=== PATIENT | female | born 1940 | race Caucasian/White ===

== ENCOUNTER 2022-11-05 13:41 | Outpatient (CLI) | payer MEDICARE, OTHER | END 2022-11-05 13:42 | disposition home or self-care (01) | LOC: LABBT 13:41 | PROVIDERS: ATTEND Orthopaedic Surgery | DX: Z01.818 Encounter for other preprocedural examination (principal); M17.11 Unilateral primary osteoarthritis, right knee | CPT/HCPCS: 71046; 93005; 93010 ==

== ENCOUNTER 2022-11-09 06:22 | Observation (INO) | payer MEDICARE, OTHER ==
[2022-11-05 15:25] LABS: #Basophils 0.1 10x3/uL (0.0-0.2); #Eosinphils 0.3 10x3/uL (0.0-0.5); #Monocytes 0.8 10x3/uL (0.0-1.1); #Neutrophils 4.3 10x3/uL (1.5-8.4); %Eosinophils 3.4 % (0.0-6.0); %Lymphocytes 33.6 % (18.0-47.0); %Monocytes 9.2 % (0.0-10.0); %Neutrophils 52.4 % (40.0-75.0); Hemoglobin 13.8 g/dL (12.0-15.5); Mean Corpuscular Hemoglobin 32.5 pg (27.0-33.0); Mean Corpuscular Volume 101.7 fl (81.6-98.3); Mean Platelet Volume 10.2 fl (7.4-10.4); Platelet Count 311 10x3/uL (150-450); RBC Distribution Width 13.6 % (11.5-14.5); Red Blood Cell (RBC) Count 4.24 10x6/uL (3.90-5.03); White Blood Cell (WBC) Count 8.1 10x3/uL (3.5-10.5)
[2022-11-05 15:34] LABS: INR-International Normal Ratio 0.9
[2022-11-05 15:41] LABS: Anion Gap 17 mmol/L (10-20); BUN (Urea Nitrogen) 17 mg/dL (9.8-20.1); Calc. Creatinine Clearance 0 mL/min (70-130); Calcium 9.6 mg/dL (7.8-10.44); Carbon Dioxide 22 mmol/L (23-31); Chloride 106 mmol/L (98-107); Estimated GFR 48; Glucose 105 mg/dL (83-110); Potassium 4.5 mmol/L (3.5-5.1); Sodium 140 mmol/L (136-145)
[2022-11-05 16:27] LABS: Bilirubin Neg (Negative); Blood, Urine 10 (Negative); Clarity Clear (Clear); Glucose, Urine (Dipstick) Normal (Negative); Ketone, Urine Negative (Negative); Leukocyte Negative (Negative); Nitrite Negative (Negative); Protein, Urine (Dipstick) Negative (Neg-Trace); Urobilinogen Normal mg/dL (Less than 2)
[2022-11-09] MEDS ORDERED: Sodium Chloride 0.9% 100 ML ONE ×2 (07:16→09:23)
[2022-11-09] MEDS ORDERED: Tranexamic Acid 1,000 MG/10 ML VIAL ONE ×2 (07:16→12:01)
[2022-11-09] MEDS ORDERED: Tranexamic Acid 1,000 MG in Sodium Chloride 0.9% 250 ML 250 ML IVPB SCH (07:30)
[2022-11-09] MEDS ORDERED: Bupivacaine PF 0.5% 30 ML VIAL ONE ×2 (07:58→09:09)
[2022-11-09] MEDS ORDERED: Midazolam HCl 2 mg/2 ml Vial ONE (07:58)
[2022-11-09] MEDS ORDERED: fentaNYL 50 mcg/mL 1 mL Vial ONE ×2 (07:58→11:48)
[2022-11-09] MEDS ORDERED: VANCOMYCIN 1.25 GM/250 ML BAG 1.25 GM in Premix Bag 1 BAG IVPB SCH (08:00)
[2022-11-09] MEDS ORDERED: CEFAZOLIN 2 GM in Sodium Chloride 0.9% 100 ML IVPB SCH (08:00)
[2022-11-09] MEDS ORDERED: Acetaminophen 500 MG TAB ONE (08:18)
[2022-11-09] MEDS ORDERED: fentaNYL 50 mcg/mL 1 mL Vial SLOW IVP PRN (08:42)
[2022-11-09] MEDS ORDERED: traMADol HCl 50 MG TAB PO PRN ×2 (08:45)
[2022-11-09] MEDS ORDERED: Ondansetron PF 4 MG/2 ML Vial IVP PRN ×2 (08:45→09:54)
[2022-11-09] MEDS ORDERED: HYDROcodone/Acetaminophen 10/325 mg Tablet PO PRN (08:45)
[2022-11-09] MEDS ORDERED: Promethazine HCl 25 MG/ML VIAL IM PRN ×2 (08:45→09:54)
[2022-11-09] MEDS ORDERED: Ropivacaine 0.2% 550 ML 550 ML NERVE BLCK SCH (08:45)
[2022-11-09] MEDS ORDERED: Zolpidem Tartrate 5 MG TAB PO PRN ×2 (08:45→09:54)
[2022-11-09] MEDS ORDERED: CEFAZOLIN 2 GM VIAL ONE (09:23)
[2022-11-09] MEDS ORDERED: fentaNYL PF 100 MCG/2 ML SYRINGE ONE (09:26)
[2022-11-09] MEDS ORDERED: Ondansetron PF 4 MG/2 ML Vial ONE (09:35)
[2022-11-09] MEDS ORDERED: PROPOFOL 200 MG/20 ML VIAL ONE (09:35)
[2022-11-09] MEDS ORDERED: ePHEDrine Sulfate 50 MG/10 ML VIAL ONE (09:35)
[2022-11-09] MEDS ORDERED: Bupivacaine HCl 0.5%/Epinephrine 1:200,000/PF 30 ml Vial ONE (09:35)
[2022-11-09] MEDS ORDERED: Lidocaine 1% PF 5 ML VIAL ONE (09:35)
[2022-11-09] MEDS ORDERED: diphenhydrAMINE 25 MG CAP PO PRN (09:54)
[2022-11-09] MEDS ORDERED: Fentanyl 100 MCG/2 ML VIAL SLOW IVP PRN (09:54)
[2022-11-09] MEDS ORDERED: Acetaminophen 325 MG TAB PO PRN (09:54)
[2022-11-09] MEDS ORDERED: Tranexamic Acid 1,000 MG in Sodium Chloride 0.9% 100 ML IVPB SCH (10:00)
[2022-11-09] MEDS ORDERED: HYDROmorphone 0.5 MG/0.5 ML SYRINGE ONE ×2 (12:01→12:41)
[2022-11-09] MEDS ORDERED: hydrALAZINE 20 MG/ML VIAL ONE (12:53)
[2022-11-09 14:40] VITALS: BMI 27.4
[2022-11-09] MEDS: HYDROcodone/Acetaminophen 10/325 mg Tablet PO PRN (17:02)
[2022-11-09] MEDS: CEFAZOLIN 2 GM in Sodium Chloride 0.9% 100 ML IVPB SCH (17:04)
[2022-11-09] MEDS: Sodium Chloride 0.9% 1,000 ML IV SCH ×2 (17:04→20:31)
[2022-11-09] MEDS: Ketorolac Tromethamine 30 MG/ML VIAL IVP PRN (19:03)
[2022-11-09] MEDS: Aspirin 81 mg Enteric Coated Tablet PO SCH (20:31)
[2022-11-09] MEDS: Ferrous Gluconate 324 MG TAB PO SCH (20:32)
[2022-11-09] MEDS: Senokot S 8.6-50 MG TAB PO SCH (20:32)
[2022-11-09] MEDS ORDERED: Vancomycin 1 GM in Premix Bag 1 BAG IVPB SCH (21:00)
[2022-11-09] MEDS ORDERED: Atorvastatin Calcium 40 MG TAB PO SCH (21:00)
[2022-11-10] MEDS: CEFAZOLIN 2 GM in Sodium Chloride 0.9% 100 ML IVPB SCH (00:12)
[2022-11-10] MEDS: Ketorolac Tromethamine 30 MG/ML VIAL IVP PRN (03:42)
[2022-11-10] MEDS: Sodium Chloride 0.9% 1,000 ML IV SCH (05:08)
[2022-11-10 05:59] LABS: Hemoglobin 11.6 g/dL (12.0-16.0); Mean Corpuscular HGB CONC 31.3 g/dL (32.0-36.0); Mean Corpuscular Hemoglobin 33.4 pg (27.0-31.0); Mean Corpuscular Volume 106.9 fl (78.0-98.0); Mean Platelet Volume 9.9 fL (7.4-10.4); Platelet Count 235 10x3/uL (130-400); Red Blood Cell (RBC) Count 3.47 mill/uL (4.20-5.40); White Blood Cell (WBC) Count 13.4 10x3/uL (4.8-10.8)
[2022-11-10] MEDS ORDERED: Levothyroxine 150 MCG TAB PO SCH (06:00)
[2022-11-10 07:59] VITALS: TEMP 97.6
[2022-11-10] MEDS: Senokot S 8.6-50 MG TAB PO SCH (08:15)
[2022-11-10] MEDS: Ferrous Gluconate 324 MG TAB PO SCH (08:16)
[2022-11-10] MEDS: HYDROcodone/Acetaminophen 10/325 mg Tablet PO PRN ×2 (08:16→12:31)
[2022-11-10] MEDS: Aspirin 81 mg Enteric Coated Tablet PO SCH (08:16)
[2022-11-10] MEDS ORDERED: Multivitamin W/ Minerals 1 TAB PO SCH (09:00)
[2022-11-10 11:18] VITALS: BP 165/74
== END 2022-11-10 12:44 | disposition home or self-care (01) ==
LOC: SDC 06:22 → SURG B 13:35
PROVIDERS: ADMIT Orthopaedic Surgery; ATTEND Orthopaedic Surgery
PROC: 0SRC0J9 Replacement of Right Knee Joint with Synthetic Substitute, Cemented, Open Approach (ICD-10-PCS; principal; 2022-11-09)
DX: M17.11 Unilateral primary osteoarthritis, right knee (principal); I10 Essential (primary) hypertension; I47.1 Supraventricular tachycardia; E03.9 Hypothyroidism, unspecified; Z79.890 Hormone replacement therapy; Z79.899 Other long term (current) drug therapy
CPT/HCPCS: 20985; 27447; 80048; 81003; 85025; 85027; 85610; 86850; 86900; 86901; 87081; 97110 ×2; 97116 ×2; 97530 ×2; A4306; C1713; C1776; J0360; J3010; J3370 ×2; 36415; J1170; J1885; J2250; J2405; J2704; J2795; J3490; J7050; S0020

== ENCOUNTER 2023-01-25 06:33 | Emergency (ER) | payer MEDICARE, OTHER ==
[2023-01-25] MEDS ORDERED: Ketorolac Tromethamine 30 MG/ML VIAL ONE (07:07)
[2023-01-25] MEDS ORDERED: predniSONE 20 MG TAB ONE (07:49)
[2023-01-25] MEDS ORDERED: Diazepam 5 MG TAB ONE (07:49)
[2023-01-25 08:03] LABS: #Basophils 0.1 thou/uL (0.0-0.2); #Monocytes 0.9 thou/uL (0.11-0.59); #Neutrophils 8.4 thou/uL (1.40-6.50); %Basophils 0.5 % (0.0-1.0); %Eosinophils 0.4 % (0.0-10.0); %Lymphocytes 13.9 % (21.0-51.0); %Monocytes 8.4 % (0.0-10.0); %Neutrophils 76.5 % (42.0-75.0); Hemoglobin 12.8 g/dL (12.0-16.0); Mean Corpuscular Hemoglobin 33.5 pg (27.0-31.0); Mean Corpuscular Volume 101.6 fl (78.0-98.0); Mean Platelet Volume 10.1 fL (7.4-10.4); Platelet Count 256 10x3/uL (130-400); RBC Distribution Width 13.4 % (11.5-14.5); Red Blood Cell (RBC) Count 3.82 mill/uL (4.20-5.40)
[2023-01-25 08:33] LABS: ALT (SGPT) 17 U/L (8-55); AST (SGOT) 20 U/L (5-34); Alkaline Phosphatase 66 U/L (40-110); Anion Gap 13 mmol/L (10-20); BUN (Urea Nitrogen) 13 mg/dL (9.8-20.1); Bilirubin, Total 0.7 mg/dL (0.2-1.2); Calc. Creatinine Clearance 0 mL/min (70-130); Calcium 9.9 mg/dL (7.8-10.44); Carbon Dioxide 26 mmol/L (23-31); Chloride 103 mmol/L (98-107); Estimated GFR 54; Globulin 3.6 g/dL (2.4-3.5); Glucose 121 mg/dL (83-110); Potassium 4.3 mmol/L (3.5-5.1); Protein, Total 7.6 g/dL (5.8-8.1); Sodium 138 mmol/L (136-145)
[2023-01-25 09:19] LABS: Bacteria/HPF None Seen HPF (None Seen); Bilirubin Negative (Negative); Blood, Urine Negative (Negative); CAUTI Indications for Culture Pelvic or flank pain; Clarity Clear (Clear); Glucose, Urine (Dipstick) Normal (Negative); Ketone, Urine Negative (Negative); Leukocyte 25 Leu/uL (Negative); Nitrite Negative (Negative); Protein, Urine (Dipstick) Negative (Neg-Trace); RBC/HPF 0-3 HPF (0-3); Specific Gravity, Urine 1.014 (1.002-1.036); Squamous Epithelial 0-3 HPF (0-3); Urobilinogen Normal mg/dL (Less than 2); WBC/HPF 0-3 HPF (0-3)
[2023-01-25 09:25] LABS: Urine Culture Reflex No No
== END 2023-01-25 12:04 | disposition home or self-care (01) ==
LOC: ERS 06:33
DX: S22.080A Wedge compression fracture of T11-T12 vertebra, initial encounter for closed fracture (principal); S32.010A Wedge compression fracture of first lumbar vertebra, initial encounter for closed fracture; X58.XXXA Exposure to other specified factors, initial encounter
CPT/HCPCS: 36415; 71045; 72128; 72131; 80053; 81001; 85025; 96372; J1885; J7512

== ENCOUNTER 2023-05-09 09:53 | Emergency (ER) | payer MEDICARE, OTHER ==
[2023-05-09] MEDS ORDERED: HYDROcodone/Acetaminophen 5/325 mg Tablet ONE (12:26)
== END 2023-05-09 12:42 | disposition home or self-care (01) ==
LOC: ERS 09:53
DX: M25.562 Pain in left knee (principal)

== ENCOUNTER 2023-11-15 10:45 | Outpatient (CLI) | payer MEDICARE, OTHER ==
[2023-11-15 12:27] LABS: Bilirubin Neg (Negative); Blood, Urine 10 (Negative); Clarity Clear (Clear); Glucose, Urine (Dipstick) Normal (Negative); Ketone, Urine Negative (Negative); Leukocyte 25 (Negative); Nitrite Negative (Negative); Protein, Urine (Dipstick) Negative (Neg-Trace); Urobilinogen Normal mg/dL (Less than 2)
[2023-11-15 12:29] LABS: #Basophils 0.08 10x3/uL (0.0-0.2); #Eosinphils 0.18 10x3/uL (0.0-0.5); #Monocytes 0.81 10x3/uL (0.0-1.1); #Neutrophils 5.27 10x3/uL (1.5-8.4); %Basophils 0.9 % (0.0-2.0); %Eosinophils 2.1 % (0.0-6.0); %Lymphocytes 25.6 % (18.0-47.0); %Monocytes 9.5 % (0.0-10.0); %Neutrophils 61.5 % (40.0-75.0); Hemoglobin 13.8 g/dL (12.0-15.5); Mean Corpuscular HGB CONC 32.9 g/dL (32.0-36.0); Mean Corpuscular Hemoglobin 33.3 pg (27.0-33.0); Mean Corpuscular Volume 101.4 fl (81.6-98.3); Mean Platelet Volume 10.4 fl (7.4-10.4); Platelet Count 284 10x3/uL (150-450); RBC Distribution Width 14.2 % (11.5-14.5); Red Blood Cell (RBC) Count 4.14 10x6/uL (3.90-5.03); White Blood Cell (WBC) Count 8.6 10x3/uL (3.5-10.5)
[2023-11-15 12:34] LABS: Anion Gap 15 mmol/L (10-20); BUN (Urea Nitrogen) 19 mg/dL (9.8-20.1); Calc. Creatinine Clearance 0 mL/min (70-130); Calcium 10.1 mg/dL (7.8-10.44); Carbon Dioxide 26 mmol/L (23-31); Chloride 104 mmol/L (98-107); Estimated GFR 38; Glucose 108 mg/dL (83-110); Potassium 4.4 mmol/L (3.5-5.1); Sodium 141 mmol/L (136-145)
[2023-11-15 13:27] LABS: Prothrombin Time 10.5 sec (9.5-12.1)
== END 2023-11-15 10:46 | disposition home or self-care (01) ==
LOC: LABBT 10:45
PROVIDERS: ATTEND Orthopaedic Surgery
DX: Z01.818 Encounter for other preprocedural examination (principal); M17.12 Unilateral primary osteoarthritis, left knee
CPT/HCPCS: 71046; 80048; 81003; 85025; 85610; 87081; 93005; 93010

== ENCOUNTER 2023-11-22 06:29 | Inpatient (IN) | payer MEDICARE, OTHER ==
[2023-11-15 11:18] VITALS: BMI 26.6
[2023-11-22] MEDS ORDERED: Bupivacaine PF 0.5% 30 ML VIAL ONE ×2 (06:34→07:54)
[2023-11-22] MEDS ORDERED: Tranexamic Acid 1,000 MG/10 ML VIAL ONE ×2 (07:06→11:25)
[2023-11-22] MEDS ORDERED: Sodium Chloride 0.9% 100 ML ONE ×2 (07:06→08:58)
[2023-11-22] MEDS ORDERED: fentaNYL 50 mcg/mL 1 mL Vial ONE ×2 (07:54→09:19)
[2023-11-22] MEDS ORDERED: Midazolam HCl 2 mg/2 ml Vial ONE (07:54)
[2023-11-22] MEDS ORDERED: Vancomycin 1 GM/200 ML (FROZEN) BAG ONE (08:10)
[2023-11-22] MEDS ORDERED: Bupivacaine HCl 0.5%/Epinephrine 1:200,000/PF 30 ml Vial ONE (08:25)
[2023-11-22] MEDS ORDERED: CEFAZOLIN 2 GM VIAL ONE (08:58)
[2023-11-22] MEDS ORDERED: Ondansetron PF 4 MG/2 ML Vial IVP PRN ×2 (09:00→11:13)
[2023-11-22] MEDS ORDERED: Promethazine HCl 25 MG/ML VIAL IM PRN ×2 (09:00→11:13)
[2023-11-22] MEDS ORDERED: Zolpidem Tartrate 5 MG TAB PO PRN (09:00)
[2023-11-22] MEDS ORDERED: Ropivacaine 0.2% 550 ML 550 ML NERVE BLCK SCH (09:00)
[2023-11-22] MEDS ORDERED: traMADol HCl 50 MG TAB PO PRN (09:00)
[2023-11-22] MEDS ORDERED: PROPOFOL 20 ML ONE ×2 (09:04→09:19)
[2023-11-22] MEDS ORDERED: fentaNYL PF 100 MCG/2 ML SYRINGE ONE ×3 (09:04→11:36)
[2023-11-22] MEDS ORDERED: Lidocaine 1% PF 5 ML VIAL ONE (09:41)
[2023-11-22] MEDS ORDERED: Dexamethasone 20 MG/5 ML VIAL ONE (10:28)
[2023-11-22] MEDS ORDERED: Acetaminophen 325 MG TAB PO PRN (11:13)
[2023-11-22] MEDS ORDERED: diphenhydrAMINE 25 MG CAP PO PRN (11:13)
[2023-11-22] MEDS ORDERED: Tranexamic Acid 1,000 MG in Sodium Chloride 0.9% 100 ML IVPB SCH (11:15)
[2023-11-22] MEDS ORDERED: HYDROmorphone 0.5 MG/0.5 ML SYRINGE ONE (11:36)
[2023-11-22] MEDS: Sodium Chloride 0.9% 1,000 ML IV SCH (12:59)
[2023-11-22] MEDS: Gabapentin 100 MG CAP PO SCH ×2 (12:59→20:13)
[2023-11-22] MEDS: HYDROcodone/Acetaminophen 10/325 mg Tablet PO PRN (16:09)
[2023-11-22] MEDS: CEFAZOLIN 2 GM in Sodium Chloride 0.9% 100 ML IVPB SCH (16:09)
[2023-11-22] MEDS: Atorvastatin Calcium 40 MG TAB PO SCH (20:13)
[2023-11-22] MEDS: Aspirin 81 mg Enteric Coated Tablet PO SCH (20:13)
[2023-11-22] MEDS: Vancomycin (BATCH) 1.5 GM in Premix 1 BAG IVPB SCH (20:14)
[2023-11-22] MEDS: traMADol HCl 50 MG TAB PO PRN (21:49)
[2023-11-23] MEDS: Zolpidem Tartrate 5 MG TAB PO PRN (00:51)
[2023-11-23 05:03] LABS: Hematocrit 34.5 % (36.0-47.0); Hemoglobin 11.3 g/dL (12.0-16.0); Mean Corpuscular HGB CONC 32.8 g/dL (32.0-36.0); Mean Corpuscular Hemoglobin 33.8 pg (27.0-31.0); Mean Corpuscular Volume 103.3 fL (78.0-98.0); Mean Platelet Volume 10.6 fL (7.4-10.4); Platelet Count 194 10x3/uL (130-400); RBC Distribution Width 14.1 % (11.5-14.5); Red Blood Cell (RBC) Count 3.34 mill/uL (4.20-5.40)
[2023-11-23] MEDS: Levothyroxine 150 MCG TAB PO SCH (06:19)
[2023-11-23] MEDS: Ferrous Gluconate 324 MG TAB PO SCH (08:28)
[2023-11-23] MEDS: CeleCOXIB 100 MG CAP PO SCH (08:28)
[2023-11-23] MEDS: Senokot S 8.6-50 MG TAB PO SCH (08:28)
[2023-11-23] MEDS: fentaNYL 50 mcg/mL 1 mL Vial SLOW IVP PRN (08:29)
[2023-11-23] MEDS: Multivitamin W/ Minerals 1 TAB PO SCH (08:31)
[2023-11-23] MEDS: HYDROcodone/Acetaminophen 10/325 mg Tablet PO PRN (22:12)
[2023-11-24 05:20] LABS: Hematocrit 32.9 % (36.0-47.0); Hemoglobin 10.4 g/dL (12.0-16.0); Mean Corpuscular HGB CONC 31.6 g/dL (32.0-36.0); Mean Corpuscular Hemoglobin 33.7 pg (27.0-31.0); Mean Corpuscular Volume 106.5 fL (78.0-98.0); Mean Platelet Volume 10.2 fL (7.4-10.4); Platelet Count 158 10x3/uL (130-400); RBC Distribution Width 14.4 % (11.5-14.5); Red Blood Cell (RBC) Count 3.09 mill/uL (4.20-5.40)
[2023-11-24 11:46] VITALS: BP 148/67; TEMP 98.5
== END 2023-11-24 13:20 | disposition home or self-care (01) | DRG 470 ==
LOC: SDC 06:29 → SJJU 13:52 → OBSVTOIN 11-23 12:31
PROVIDERS: ADMIT Orthopaedic Surgery; ATTEND Orthopaedic Surgery
PROC: 0SRD0J9 Replacement of Left Knee Joint with Synthetic Substitute, Cemented, Open Approach (ICD-10-PCS; principal; 2023-11-22)
DX: M17.12 Unilateral primary osteoarthritis, left knee (principal); Z96.651 Presence of right artificial knee joint
CPT/HCPCS: 36415; 85027; 86850; 86900; 86901; A4306; C1713; C1776; J0665; J1100; J1170; J2250; J2704; J2795; J3010; J3370; J3370-JW; J3490; J7050